=== PATIENT | female | born 1975 | race Caucasian/White ===

== ENCOUNTER → 2020-01-06 | Outpatient (CLI) | payer OTHER ==
[~2020-01-06] MED LIST: ACET-1600 PO; HYDR200T72 PO; HYDR25TA6 PO; LISI40TA PO; SERT25TA PO; TRAM50TA2 PO
[2020-01-06 15:48] LABS: ALANINE AMINOTRANSFERASE 33 U/L (12-78); ALBUMIN 3.6 g/dL (3.4-5.0); ANION GAP 2 mmol/L (5-15); CALCIUM 8.5 mg/dL (8.5-10.1); CHLORIDE 111 mmol/L (98-107); CREATININE 0.96 mg/dL (0.55-1.02)
[2020-01-06 15:50] LABS: BASOPHILS # (AUTO) 0.02 x10^3/uL (0-0.1); BASOPHILS % (AUTO) 0 % (0-1); EOSINOPHILS # (AUTO) 0.08 x10^3/uL (0-0.4); EOSINOPHILS % (AUTO) 2 % (1-7); LYMPHOCYTES # (AUTO) 1.28 x10^3/uL (1-3.4); LYMPHOCYTES % (AUTO) 28 % (22-44); MD NO; MEAN CORPUSCULAR HEMOGLOBIN 27.5 pg (27.0-34.8); MEAN CORPUSCULAR VOLUME 83.4 fL (80-100); MEAN PLATELET VOLUME 9.3 fL (7.4-10.4); MONOCYTES # (AUTO) 0.25 x10^3/uL (0.2-0.8); MONOCYTES % (AUTO) 6 % (2-9); NEUTROPHILS # (AUTO) 3.01 x10^3/uL (1.8-6.8); NEUTROPHILS % (AUTO) 65 % (42-75); PLATELET COUNT 216 x10^3/uL (130-400); RED BLOOD COUNT 4.05 x10^6/uL (3.82-5.3)
[2020-01-06 15:53] LABS: ALKALINE PHOSPHATASE 50 U/L (45-117); BILIRUBIN,TOTAL 0.3 mg/dL (0.2-1.0); TOTAL PROTEIN 6.9 g/dL (6.4-8.2)
[2020-01-06 15:57] LABS: INTERNATIONAL NORMALIZED RATIO 1.02 (0.93-1.1); PROTHROMBIN TIME 10.8 Seconds (9.6-11.5)
== END | disposition home or self-care (01) ==
LOC: STAR 14:39
PROVIDERS: ATTEND Neurological Surgery
DX: Z01.818 Encounter for other preprocedural examination (principal); M47.22 Other spondylosis with radiculopathy, cervical region
CPT/HCPCS: 36415; 71046; 72050; 80053; 84703; 85025; 85610; 85730; 93005

== ENCOUNTER 2020-03-25 10:34 | Emergency (ER) | payer OTHER ==
[~2020-03-25] VITALS: Ht 170.2 cm; Wt 82.1 kg
[~2020-03-25 10:34] MED LIST changes: +METH4TAB2 PO; +METH750T2 PO; +OXYC-302 PO
--- NOTE | 2020-03-25 10:50 | NUR ---
"HAD CERVICAL LAMINECTOMY 2 MONTHS AGO AND NOW FOR THE PAST 2-3 DAYS I'VE HAD A SEVERE MIGRAINE AND IT FEELS LIKE THE LEFT SIDE OF MY FACE IS GOING TO BULGE OUT. NOTHING IS HELPING". MIGRAINES STARTED AFTER SURGERY. No focal deficits, provider to bedside
[2020-03-25] MEDS ORDERED: ONDANSETRON 2MG/ML, 2ML IVPush ONE (11:30)
[2020-03-25] MEDS ORDERED: SODIUM CHLORIDE FLUSH 10ML SYR IVF ONE (11:30)
[2020-03-25] MEDS ORDERED: ONDANSETRON 2MG/ML, 2ML ONE (11:59)
[2020-03-25] MEDS ORDERED: HYDROmorphone 1 MG/ML, 1ML INJ ONE ×2 (11:59→14:13)
[2020-03-25 12:07] LABS: ALANINE AMINOTRANSFERASE 30 U/L (12-78); ALBUMIN 3.4 g/dL (3.4-5.0); ANION GAP 7 mmol/L (5-15); CALCIUM 8.6 mg/dL (8.5-10.1); CHLORIDE 109 mmol/L (98-107); CREATININE 0.91 mg/dL (0.55-1.02)
[2020-03-25 12:10] LABS: ALKALINE PHOSPHATASE 58 U/L (45-117); BILIRUBIN,TOTAL 0.2 mg/dL (0.2-1.0); TOTAL PROTEIN 6.7 g/dL (6.4-8.2)
--- NOTE | 2020-03-25 12:10 | NUR ---
Medicated per emar for head/neck/face pain at 06/04 TO MRI AT 1211
[2020-03-25 12:16] LABS: BASOPHILS # (AUTO) 0.02 x10^3/uL (0-0.1); BASOPHILS % (AUTO) 0 % (0-1); EOSINOPHILS # (AUTO) 0.06 x10^3/uL (0-0.4); EOSINOPHILS % (AUTO) 1 % (1-7); LYMPHOCYTES # (AUTO) 1.17 x10^3/uL (1-3.4); LYMPHOCYTES % (AUTO) 26 % (22-44); MD NO; MEAN CORPUSCULAR HEMOGLOBIN 27.2 pg (27.0-34.8); MEAN CORPUSCULAR HGB CONC 31.8 g/dL (32.4-35.8); MEAN CORPUSCULAR VOLUME 85.4 fL (80-100); MEAN PLATELET VOLUME 9.4 fL (7.4-10.4); MONOCYTES # (AUTO) 0.27 x10^3/uL (0.2-0.8); MONOCYTES % (AUTO) 6 % (2-9); NEUTROPHILS # (AUTO) 2.94 x10^3/uL (1.8-6.8); NEUTROPHILS % (AUTO) 66 % (42-75); PLATELET COUNT 196 x10^3/uL (130-400); RED BLOOD COUNT 4.08 x10^6/uL (3.82-5.3); RED CELL DISTRIBUTION WIDTH 16.2 % (9.6-15.2)
--- NOTE | 2020-03-25 12:40 | NUR ---
WITH REASSEMENT PAIN IMPROVED TO 4/10 REPEAT NEUROCHECK UNREMARKABLE (NO ASSESSED OR REPORTED DEFICITS)
[2020-03-25] MEDS ORDERED: GADOTERATE 10 MMOL/20 ML SYR ONE (13:08)
[2020-03-25] MEDS: HYDROmorphone 1 MG/ML, 1ML INJ IVPush PRN ×2 (13:47→14:17)
--- NOTE | 2020-03-25 14:21 | NUR ---
Ratna RN note: Pt medicated for continued 7/10 pain per MAR, denies other needs.
--- NOTE | 2020-03-25 15:11 | NUR ---
WITH REASSESSMENT PATIENT REPORTS PAIN IMPROVED TO 5/10 REPORT TO LEONARD ARCE
--- NOTE | 2020-03-25 15:12 | NUR ---
REPORT RECEIVED FROM YAZMIN LEE
[2020-03-25 15:20] VITALS: BP 118/76
--- NOTE | 2020-03-25 15:58 | NUR ---
TO ROOM FOR RECHECK
--- NOTE | 2020-03-25 16:33 | NUR ---
Patient given discharge instructions and they have confirmed that they understand the instructions. Patient ambulatory with steady gait.
== END 2020-03-25 16:57 | disposition home or self-care (01) ==
LOC: ED 10:50
DX: R51 Headache (principal); M54.2 Cervicalgia; R42 Dizziness and giddiness; R11.0 Nausea; I10 Essential (primary) hypertension; J45.909 Unspecified asthma, uncomplicated
CPT/HCPCS: 36415; 70450; 72156; 80053; 85025; 96374; 96375; 96376; 99285; A9575; J1170; J2405

== ENCOUNTER 2020-05-06 11:20 | Emergency (ER) | payer OTHER ==
[~2020-05-06] VITALS: Ht 170.2 cm; Wt 85.6 kg
[2020-05-06] MEDS ORDERED: DIAZEPAM 5 MG/ML, 2ML IV ONE (12:00)
[2020-05-06] MEDS ORDERED: SODIUM CHLORIDE FLUSH 10ML SYR IVF ONE (12:00)
[2020-05-06] MEDS ORDERED: KETOROLAC 30 MG/1 ML IV ONE (12:00)
[2020-05-06] MEDS ORDERED: PROCHLORPERAZINE 5 MG/ML, 2ML IVPush ONE (12:30)
[2020-05-06] MEDS ORDERED: PROCHLORPERAZINE 5 MG/ML, 2ML ONE (12:49)
[2020-05-06] MEDS ORDERED: KETOROLAC 30 MG/1 ML ONE (12:50)
[2020-05-06] MEDS ORDERED: DIAZEPAM 5 MG/ML, 2ML ONE (12:50)
--- NOTE | 2020-05-06 13:03 | NUR ---
MEDICATED PER EMAR-HAS RIDE HOME PLACED ON POX/NIBP
--- NOTE | 2020-05-06 13:31 | NUR ---
With reassessment patient reports headache improved to 5/10 Vss Provider made aware
[2020-05-06 13:40] VITALS: BP 137/76
== END 2020-05-06 14:10 | disposition home or self-care (01) ==
LOC: ED 12:05
DX: M62.830 Muscle spasm of back (principal); M62.838 Other muscle spasm; M54.2 Cervicalgia; I10 Essential (primary) hypertension; G43.909 Migraine, unspecified, not intractable, without status migrainosus; Z88.5 Allergy status to narcotic agent
CPT/HCPCS: 96374; 96375; 99284; J0780; J1885; J3360

== ENCOUNTER 2020-09-22 12:01 | Emergency (ER) | payer OTHER ==
[~2020-09-22] VITALS: Ht 170.2 cm; Wt 88.0 kg
[~2020-09-22 12:01] MED LIST changes: -OXYC-302 PO; +OXYC1TAB14 PO
[2020-09-22] MEDS ORDERED: IBUP-11 PO (12:33)
--- NOTE | 2020-09-22 12:34 | NUR ---
PT IS A 44F COMPLAINING OF HEADACHE, AND NECK SPASM WITH TINGLING FROM LEFT SIDE OF HEAD AND DOWN THE LEFT ARM. THE NECK SPASMS STARTED A WEEK AGO AND TODAY SEEM CONTINUOUS. SHE HAD A CERVICAL LAMINECTOMY A YEAR AGO AND FELT LIKE SHE WAS DOING WELL WITH HER INJURY UNTIL A WEEK AGO. CONTINUOUS SP02, AND CYCLING VITALS. CALL LIGHT WITHIN REACH.
[2020-09-22] MEDS ORDERED: ONDANSETRON ODT 8 MG ONE (13:14)
[2020-09-22] MEDS ORDERED: DIAZEPAM 5 MG/ML, 2ML ONE (13:15)
[2020-09-22] MEDS ORDERED: KETOROLAC 60 MG/2 ML ONE (13:15)
[2020-09-22] MEDS ORDERED: KETOROLAC 30 MG/1 ML IM ONE (13:30)
[2020-09-22] MEDS ORDERED: DIAZEPAM 5 MG/ML, 2ML IM ONE (13:30)
[2020-09-22] MEDS ORDERED: ONDANSETRON ODT 8 MG PO ONE (13:30)
[2020-09-22 14:31] VITALS: BP 109/77
--- NOTE | 2020-09-22 14:31 | NUR ---
Patient/Caregiver given discharge instructions and they have confirmed that they understand the instructions. Patient ambulatory with steady gait.
== END 2020-09-22 14:36 | disposition home or self-care (01) ==
LOC: ED 12:44
DX: G44.219 Episodic tension-type headache, not intractable (principal); M54.2 Cervicalgia; R20.0 Anesthesia of skin; I10 Essential (primary) hypertension; J45.909 Unspecified asthma, uncomplicated; M32.9 Systemic lupus erythematosus, unspecified
CPT/HCPCS: 96372; 99284; J1885; J3360; Q0162